=== PATIENT | female | born 1995 | race Caucasian/White ===

== ENCOUNTER 2018-12-10 09:44 | Emergency (ER) | payer OTHER ==
[2018-12-10] MEDS ORDERED: ONDANSETRON 4 MG TAB.RAPDIS PO ONE (10:10)
--- NOTE | 2018-12-10 10:11 | ER Document Report ---
ED Medical Screen (RME) - General Chief Complaint: Nausea/Vomiting Stated Complaint: ABDOMINAL PAIN Time Seen by Provider: 12/10/18 10:09 Notes: Patient says she became sick this morning with a sharp pain in her left lower quadrant and left side area. She is also had some nausea and vomited once at home and then several times since she has been here. No change in bowel habits or diarrhea. No blood in stools. Denies any UTI symptoms. She did have UTI symptoms a couple of weeks ago, but these went away and she has not had that recently. Has not noted any fever. No history of any abdominal surgeries. Not on any regular prescription medications. No control. TRAVEL OUTSIDE OF THE [place] IN LAST 30 DAYS: No - Related Data Allergies/Adverse Reactions: Penicillins Allergy (Verified 12/10/18 09:47) Past Medical History Renal/ Medical History: Denies: Hx Peritoneal Dialysis Physical Exam - Vital signs Vitals: Temp Pulse Resp BP Pulse Ox 97.6 F 91 20 140/89 H 97 12/10/18 09:47 12/10/18 09:47 12/10/18 09:47 12/10/18 09:47 12/10/18 09:47 Course - Vital Signs Vital signs: Temp Pulse Resp BP Pulse Ox 97.6 F 91 20 140/89 H 97 12/10/18 09:47 12/10/18 09:47 12/10/18 09:47 12/10/18 09:47 12/10/18 09:47
[2018-12-10 10:42] LABS: ABSOLUTE EOSINOPHILS # (AUTO) 0.2 10^3/uL (0.0-0.6); ABSOLUTE LYMPHOCYTES (AUTO) 1.8 10^3/uL (0.5-4.7); ABSOLUTE MONOCYTES (AUTO) 0.5 10^3/uL (0.1-1.4); ABSOLUTE NEUT (AUTO) 6.3 10^3/uL (1.7-8.2); BASOPHILS % (AUTO) 0.5 % (0-2); EOSINOPHILS % (AUTO) 1.9 % (0-6); HEMATOCRIT 41.5 % (36.0-47.0); HEMOGLOBIN 14.1 g/dL (12.0-15.5); MEAN CORPUSCULAR VOLUME 82 fl (80-97); PLATELET COUNT 247 10^3/uL (150-450); RED BLOOD COUNT 5.06 10^6/uL (3.72-5.28); RED CELL DISTRIBUTION WIDTH 13.5 % (11.5-14.0); SEGMENTED NEUTROPHILS % (AUTO) 71.6 % (42-78); TOTAL CELLS COUNTED % (AUTO) 100 %; WHITE BLOOD COUNT 8.9 10^3/uL (4.0-10.5)
[2018-12-10 10:44] LABS: APPEARANCE,URINE CLOUDY; BILIRUBIN,URINE NEGATIVE (NEGATIVE); COLOR,URINE YELLOW; GLUCOSE, URINE NEGATIVE (NEGATIVE); KETONES,URINE NEGATIVE (NEGATIVE); LEUKOCYTE ESTERASE,URINE MODERATE (NEGATIVE); NITRITE,URINE NEGATIVE (NEGATIVE); PROTEIN,URINE NEGATIVE (NEGATIVE); URINE SPECIFIC GRAVITY 1.024; UROBILINOGEN,URINE NEGATIVE mg/dL (<2.0)
[2018-12-10] MEDS ORDERED: MORPHINE SULFATE 10 MG/ML INJ IV ONE (10:55)
[2018-12-10 10:57] LABS: ALANINE AMINOTRANSFERASE 41 U/L (9-52); ALBUMIN 4.8 g/dL (3.5-5.0); ALKALINE PHOSPHATASE 54 U/L (38-126); ANION GAP 11 (5-19); ASPARTATE AMINO TRANSFERASE 21 U/L (14-36); BILIRUBIN,DIRECT 0.3 mg/dL (0.0-0.4); BILIRUBIN,TOTAL 0.7 mg/dL (0.2-1.3); BLOOD UREA NITROGEN 14 mg/dL (7-20); CALCIUM 9.8 mg/dL (8.4-10.2); CARBON DIOXIDE 27 mmol/L (22-30); CHLORIDE 101 mmol/L (98-107); GLUCOSE 105 mg/dL (75-110); LIPASE 65.6 U/L (23-300); POTASSIUM 3.9 mmol/L (3.6-5.0); SODIUM 139.4 mmol/L (137-145); TOTAL PROTEIN 7.9 g/dL (6.3-8.2)
--- NOTE | 2018-12-10 10:58 | ER Document Report ---
ED GI/ - General Chief Complaint: Nausea/Vomiting Stated Complaint: ABDOMINAL PAIN Time Seen by Provider: 12/10/18 10:09 Notes: Patient is a 23-year-old female that presents today with the onset of some left- sided lower quadrant "stabbing" intermittent abdominal discomfort. No aggravating or relieving factors. No radiation. No missed menstrual periods. She did have vomiting without diarrhea. No flank pain or dysuria. Patient states 2 weeks ago she had some right lower quadrant discomfort and thought it was a urinary tract infection. She did not take any medications or see a provider at that time. TRAVEL OUTSIDE OF THE [place] IN LAST 30 DAYS: No - Related Data Allergies/Adverse Reactions: Penicillins Allergy (Verified 12/10/18 09:47) Past Medical History - Social History Smoking Status: Never Smoker Family History: Reviewed & Not Pertinent Patient has suicidal ideation: No Patient has homicidal ideation: No Renal/ Medical History: Denies: Hx Peritoneal Dialysis Review of Systems - Review of Systems Constitutional: denies: Fever Cardiovascular: denies: Chest pain, Palpitations Respiratory: denies: Short of breath Gastrointestinal: denies: Diarrhea, Vomiting Genitourinary: denies: Dysuria Musculoskeletal: denies: Leg swelling Skin: Other - no hives. denies: Rash Neurological/Psychological: Other - no slurred speech -: Yes All other systems reviewed and negative Physical Exam - Vital signs Vitals: Temp Pulse Resp BP Pulse Ox 97.6 F 91 20 140/89 H 97 12/10/18 09:47 12/10/18 09:47 12/10/18 09:47 12/10/18 09:47 12/10/18 09:47 Notes: Reviewed vital signs and nursing note as charted by RN. CONSTITUTIONAL: Alert and oriented and responds appropriately to questions. Well-appearing; well-nourished HEAD: Normocephalic; atraumatic EYES: Sclerae non-icteric CARD: Regular rate and rhythm; no murmurs; symmetric distal pulses RESP: Normal chest excursion without splinting or tachypnea; breath sounds clear and equal bilaterally ABD/GI: Normal bowel sounds; non-distended; soft, currently nontender to deep palpation of all 4 quadrants of the abdomen; no palpable organomegaly or masses BACK: The back appears normal and is non-tender to palpation EXT: Normal ROM in all joints; non-tender to palpation; no edema SKIN: No acute lesions noted NEURO: CN 2-12 intact; 5/5 bilateral upper and lower extremity strength with sensation intact to light touch PSYCH: The patient's mood and manner are appropriate. Grooming and personal hygiene are appropriate. Course - Re-evaluation Re-evalutation: 12/10/18 10:57 Given the above history and physical examination we will order basic labs, transvaginal ultrasound, urinalysis, pelvic exam, and reassess. Patient currently is pain-free. Patient has no palpable masses. Vital signs as recorded. I would like to evaluate for the possibility of an ectopic or ovarian cyst rupture or torsion. 12/10/18 12:04 Labs as recorded. Urine analysis and test as recorded. I will provide a gram of Rocephin. On pelvic examination there are no external or internal lesions. No cervical motion tenderness. No adnexal masses or tenderness. 12/10/18 12:37 Ultrasound as recorded. Left lower quadrant pain has improved. Still no pain to the other quadrants of the abdomen. Urine analysis as recorded. is negative. Wet mount as recorded. GC chlamydia is pending. Rocephin has been started and I would discharge the patient home on a short course of pain medications, nausea medications, and antibiotics. Urine culture has been sent. Strict return precautions have been explained. No vomiting during my course of treatment. - Vital Signs Vital signs: Temp Pulse Resp BP Pulse Ox 97.6 F 91 20 140/89 H 97 12/10/18 09:47 12/10/18 09:47 12/10/18 09:47 12/10/18 09:47 12/10/18 09:47 - Laboratory Result Diagrams: 12/10/18 10:26 12/10/18 10:26 Laboratory results interpreted by me: 12/10/18 10:26 Urine Blood LARGE H Ur Leukocyte Esterase MODERATE H Discharge - Discharge Clinical Impression: LLQ pain, Leukocytes in urine Vomiting Qualifiers: Vomiting type: unspecified Vomiting Intractability: non-intractable Nausea presence: with nausea Qualified Code(s): R11.2 - Nausea with vomiting, unspecified Condition: Good Disposition: HOME, SELF-CARE Additional Instructions: Come back immediately for any increased pain, change in location or quality of pain, repeat vomiting, fevers, or any other acute problems. Please make sure that you complete the course of antibiotics and follow-up with your primary care physician for lab gonorrhea chlamydia assessment as well as urine culture results. Prescriptions: Cephalexin Monohydrate [Keflex 500 mg Capsule] 500 mg PO Q6H 7 Days #28 capsule Hydrocodone/Acetaminophen [T[place] 5-325 mg Tablet] 1 tab PO Q6H 3 Days #12 tablet Ondansetron [Zofran Odt 4 mg Tablet] 1 tab PO Q6H #15 tab.rapdis
[2018-12-10] MEDS ORDERED: OXYCODONE-ACETAMINOPHEN 5-325 MG TABLET PO ONE (12:03)
[2018-12-10] MEDS ORDERED: CEFTRIAXONE RTU 1 GM/D5W 50 ML IV ONE (12:04)
[2018-12-10 12:15] LABS: BACTERIA (WET MOUNT) 4+ BACTERIA SEEN; EPITHELIALS (WET MOUNT) 3+ EPITHELIALS SEEN; T.VAGINALIS (WET MOUNT) NO TRICHOMONAS SEEN; WBCS (WET MOUNT) 1+ WBCS SEEN; YEAST (WET MOUNT) NO YEAST SEEN
--- NOTE | 2018-12-10 12:20 | RADIOLOGY REPORT (SQ) ---
EXAM DESCRIPTION: U/S NON-OB PELVIS TV W/O DOP COMPLETED DATE/TIME: 12/10/2018 11:43 am REASON FOR STUDY: 39, LLQ pain COMPARISON: None. TECHNIQUE: Dynamic and static grayscale images acquired of the pelvis via transvaginal approach and recorded on PACS. Additional selected color Doppler and spectral images recorded. LIMITATIONS: None. FINDINGS: UTERUS: Contour normal. No mass. ENDOMETRIAL STRIPE: No focal or generalized thickening. No masses. CERVIX: Few nabothian cysts. RIGHT OVARY AND DOPPLER: Normal size. No worrisome masses. Normal vascular flow without evidence for torsion. LEFT OVARY AND DOPPLER: Normal size. No worrisome masses. Normal vascular flow without evidence for t orsion. FREE FLUID: None noted. OTHER: No other significant finding. MEASUREMENTS: UTERUS: 7.5 x 3.4 x 4.9 cm ENDOMETRIAL STRIPE: 4 mm RIGHT OVARY: 3.6 x 2.6 x 3.1 cm LEFT OVARY: 3.1 x 2.2 x 2.6 cm IMPRESSION: NORMAL TRANSVAGINAL PELVIC ULTRASOUND. TECHNICAL DOCUMENTATION: JOB ID: [id number] [employer]- All Rights Reserved Rev-02/10 Reading location - IP/workstation name: [email or web address]
[2018-12-10 12:57] VITALS: BP 131/78
[2018-12-10 13:40] LABS: CHLAM PCR NOT DETECTED (NOT DETECT); GON PCR NOT DETECTED (NOT DETECT)
== END 2018-12-10 13:09 | disposition home or self-care (01) ==
LOC: ER 09:44
DX: R11.2 Nausea with vomiting, unspecified (principal); R10.32 Left lower quadrant pain; R82.90 Unspecified abnormal findings in urine
CPT/HCPCS: 99284; 96375; 96365; 36415; 87086; 87210; 83690; 84703; 85025; 80053; 81001; 87491; 87591; 76830; S0119; J2270; J0696